=== PATIENT | female | born 1985 | race African-American/Black ===

== ENCOUNTER 2018-12-08 22:13 | Emergency (ER) | payer OTHER ==
[~2018-12-08] VITALS: Ht 157.5 cm; Wt 56.2 kg
--- NOTE | 2018-12-08 22:51 | PHYS DOC ---
Adult General Chief Complaint Chief Complaint: abdominal pain HPI HPI 33-year-old female presents with sudden onset of epigastric abdominal pain. The patient was driving her car around 4:30 and she began to have this pain. It is a cramping sensation of moderate intensity. The last time the patient ate was 9:00 this morning. She has had a couple episodes of diarrhea today. She has a bit nauseous, but no vomiting. He denies fever or chills. She had pain like this once in the past, but it went away spontaneously. Patient is not a daily alcohol drinker. She has no history of pancreatitis. Review of Systems Review of Systems Constitutional: Denies fever or chills [] Eyes: Denies change in visual acuity, redness, or eye pain [] HENT: Denies nasal congestion or sore throat [] Respiratory: Denies cough or shortness of breath [] Cardiovascular: No additional information not addressed in HPI [] GI: abdominal pain, nausea, diarrhea. Denies vomiting, bloody stools.[] : Denies dysuria or hematuria [] Musculoskeletal: Denies back pain or joint pain [] Integument: Denies rash or skin lesions [] Neurologic: Denies headache, focal weakness or sensory changes [] Endocrine: Denies polyuria or polydipsia [] All other systems were reviewed and found to be within normal limits, except as documented in this note. Current Medications Current Medications Current Medications Medications (Trade) Dose Ordered Sig/[facility] Start Time Stop Time Status Last Admin Dose Admin Sodium Chloride 1,000 ml @ 1,000 mls/hr 1X ONCE 12/08/18 22:45 12/08/18 23:44 UNV Physical Exam Physical Exam Constitutional: Well developed, well nourished, no acute distress, non-toxic appearance. [] HENT: Normocephalic, atraumatic, bilateral external ears normal, oropharynx moist, no oral exudates, nose normal. [] Eyes: PERRLA, EOMI, conjunctiva normal, no discharge. [] Neck: Normal range of motion, no tenderness, supple, no stridor. [] Cardiovascular:Heart rate regular rhythm, no murmur [] Lungs & Thorax: Bilateral breath sounds clear to auscultation [] Abdomen: Bowel sounds normal, soft, moderate epigastric tenderness, no masses, no pulsatile masses. [] Skin: Warm, dry, no erythema, no rash. [] Back: No tenderness, no CVA tenderness. [] Extremities: No tenderness, no cyanosis, no clubbing, ROM intact, no edema. [] Neurologic: Alert and oriented X 3, normal motor function, normal sensory fun ction, no focal deficits noted. [] Psychologic: Affect normal, judgement normal, mood normal. [] EKG EKG [] Radiology/Procedures Radiology/Procedures [] Impressions: Supine abdomen. HISTORY: Epigastric pain Supine view was taken of the abdomen. Bowel pattern is normal. There are no abnormal calcifications. Osseous structures are unremarkable. IMPRESSION: 1. Negative abdomen. Electronically signed by: Carl Sandoval MD (12/09/2018 12:26 AM) [facility] DICTATED AND SIGNED BY: CARL SANDOVAL MD DATE: 12/09/1825 CC: KALEB STEIN DO; PCP,NO ~ Course & Med Decision Making Course & Med Decision Making Pertinent Labs and Imaging studies reviewed. (See chart for details) The patient's labs are unremarkable. Her urinalysis is negative for infection. She is not . The patient was given Toradol for her discomfort. Believe it's possible this is related to her gallbladder. Liver enzymes are normal at this time so it is not acute cholecystitis. I have advised that she follow-up with her PCP to consider ultrasound and/or HIDA scan. She is stable for discharge at this time. [] Dragon Disclaimer Dragon Disclaimer This electronic medical record was generated, in whole or in part, using a voice recognition dictation system. Departure Departure: Impression: Primary Impression: Epigastric abdominal pain Additional Impression: Constipation Disposition: 01 HOME, SELF-CARE Condition: STABLE Referrals: PCP,NO (PCP) Patient Instructions: Abdominal Pain, Women, Constipation, Adult, [id number] Problem Qualifiers KALEB STEIN DO Dec 08, 2018 22:51
[2018-12-08 23:10] LABS: BASO % 0 % (0-3); EOS # 0.1 x10^3/uL (0.0-0.7); EOS % 1 % (0-3); HEMATOCRIT 41.6 % (36.0-47.0); HEMOGLOBIN 13.6 g/dL (12.0-15.5); LYMPH # 0.8 x10^3/uL (1.0-4.8); LYMPH % 10 % (24-48); MEAN CORPUSCULAR HEMOGLOBIN 27 pg (25-35); MEAN CORPUSCULAR HGB CONC 33 g/dL (31-37); MEAN CORPUSCULAR VOLUME 82 fL (79-100); MONO # 0.4 x10^3/uL (0.0-1.1); MONO % 6 % (0-9); NEUT # 6.1 x10^3uL (1.8-7.7); NEUT % 83 % (31-73); PLATELET COUNT 190 x10^3/uL (140-400); RED BLOOD COUNT 5.08 x10^6/uL (3.50-5.40); RED CELL DISTRIBUTION WIDTH 12.7 % (11.5-14.5); WHITE BLOOD COUNT 7.4 x10^3/uL (4.0-11.0)
[2018-12-08] MEDS ORDERED: IV NORMAL SALINE 1,000ML 1,000 ML IV ONE (23:15)
[2018-12-08] MEDS ORDERED: KETOROLAC 30 MG/ML VIAL. IV ONE (23:15)
[2018-12-08 23:27] LABS: ALBUMIN 4.1 g/dL (3.4-5.0); ALBUMIN/GLOBULIN RATIO 0.9 (1.0-1.7); CALCIUM 9.4 mg/dL (8.5-10.1); CREATININE 0.7 mg/dL (0.6-1.0); GFR 117.3; POTASSIUM 3.5 mmol/L (3.5-5.1); TOTAL BILIRUBIN 0.3 mg/dL (0.2-1.0); TOTAL PROTEIN 8.5 g/dL (6.4-8.2)
[2018-12-08 23:42] LABS: BILIRUBIN,URINE NEG (NEG); CLARITY,URINE CLEAR; COLOR,URINE YELLOW; GLUCOSE,URINE NEG (NEG); NITRITE,URINE NEG (NEG); RBC,URINE OCC /HPF (0-2); UROBILINOGEN,URINE 0.2 mg/dL (0.2 mg/dL)
[2018-12-08 23:43] LABS: BACTERIA,URINE FEW /HPF (0-FEW); SQUAMOUS EPITHELIAL CELL,UR FEW /LPF
--- NOTE | 2018-12-09 00:29 | RAD ---
Supine abdomen. HISTORY: Epigastric pain Supine view was taken of the abdomen. Bowel pattern is normal. There are no abnormal calcifications. Osseous structures are unremarkable. IMPRESSION: 1. Negative abdomen. Electronically signed by: Bishop Mtz MD (12/09/2018 12:26 AM) [facility]
[2018-12-09 00:44] VITALS: BP 98/55
== END 2018-12-09 00:50 | disposition home or self-care (01) ==
LOC: ER 22:13
DX: K59.00 Constipation, unspecified (principal); R19.7 Diarrhea, unspecified
CPT/HCPCS: 36415; 74018; 80053; 81001; 81025; 83690; 85025; 96361; 96374; 99285; J1885; J7030

== ENCOUNTER 2018-12-30 20:39 | Emergency (ER) | payer OTHER ==
[~2018-12-30] VITALS: Ht 157.5 cm; Wt 52.6 kg
[2018-12-30] MEDS ORDERED: IV RINGERS SOLUTION,LACTATED 1,000 ML IV SCH (20:44)
--- NOTE | 2018-12-30 20:44 | ED.ADGEN ---
Past History Past Medical History: No Pertinent History Past Medical History H.Pylori Past Surgical History: No Surgical History Alcohol Use: None Drug Use: None Adult General Chief Complaint Chief Complaint ".. I got this vaginal discharge.. I ve had it before.. and I also on treatment for H.pylori.. 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 Patient has had 1 lifetime sex partners. No documented history of previous STDs. Recent travel from [place] to [place]. Patient visiting from [place]. No history immunosuppression. Currently under treatment for H. pylori. Patient up-to-date with vaccinations. Patient currently breast-feeding. No new soaps, douches, or changes in personal hygiene products. Review of Systems Review of Systems Constitutional: Denies fever or chills [] Eyes: Denies change in visual acuity, redness, or eye pain [] HENT: Denies nasal congestion or sore throat [] Respiratory: Denies cough or shortness of breath [] Cardiovascular: No additional information not addressed in HPI [] GI: Denies abdominal pain, nausea, vomiting, bloody stools or diarrhea [] : Denies dysuria or hematuria []complains of inflamed vaginal labia and vaginal discharge Musculoskeletal: Denies back pain or joint pain [] Integument: Denies rash or skin lesions [] Neurologic: Denies headache, focal weakness or sensory changes [] Endocrine: Denies polyuria or polydipsia [] All other systems were reviewed and found to be within normal limits, except as documented in this note. Family History Family History Noncontributory Current Medications Current Medications Current Medications Medications (Trade) Dose Ordered Sig/[place] Start Time Stop Time Status Last Admin Dose Admin Acyclovir (Zovirax) 400 mg 1X ONCE 12/30/18 22:15 12/30/18 22:16 DC 12/30/18 22:59 400 MG Azithromycin (Zithromax) 1,000 mg 1X ONCE 12/30/18 22:15 12/30/18 22:16 DC 12/30/18 22:59 1,000 MG Ceftriaxone Sodium 1 gm/ Sodium Chloride 50 ml @ 100 mls/hr 1X ONCE 12/30/18 22:00 12/30/18 22:29 DC 12/30/18 22:00 100 MLS/HR Ceftriaxone Sodium (Rocephin) 1 gm STK-MED ONCE 12/30/18 22:27 12/30/18 22:28 DC Famotidine (Pepcid Vial) 20 mg 1X ONCE 12/30/18 21:15 12/30/18 21:16 DC 12/30/18 22:59 20 MG Lactated Ringer's 1,000 ml @ 1,000 mls/hr Q1H 12/30/18 20:44 12/30/18 21:43 DC 12/30/18 22:12 1,000 MLS/HR Metronidazole (Flagyl) 2,000 mg 1X ONCE 12/30/18 22:15 12/30/18 22:16 DC 12/30/18 22:59 2,000 MG Ondansetron HCl (Zofran) 8 mg 1X ONCE 12/30/18 21:15 12/30/18 21:16 DC 12/30/18 22:58 8 MG Sodium Chloride 50 ml @ As Directed STK-MED ONCE 12/30/18 22:27 12/30/18 22:28 DC Allergies Allergies Allergies Coded Allergies Type Severity Reaction Last Updated Verified No Known Drug Allergies 12/08/18 No Physical Exam Physical Exam Constitutional: Well developed, well nourished, moderate acute distress, non- toxic appearance. [] HENT: Normocephalic, atraumatic, bilateral external ears normal, oropharynx moist, no oral exudates, nose normal. [] Eyes: PERRLA, EOMI, conjunctiva normal, no discharge. [] Neck: Normal range of motion, no tenderness, supple, no stridor. [] Cardiovascular:Heart rate regular rhythm, no murmur [] Lungs & Thorax: Bilateral breath sounds clear to auscultation [] Abdomen: Bowel sounds normal, soft, no tenderness, no masses, no pulsatile masses. []Vaginal labia are very red and swollen with some breakdown has had blisters. Patient has copious vaginal discharge and cervical motion tenderness Skin: Warm, dry, no erythema, no rash. [] Back: No tenderness, no CVA tenderness. [] Extremities: No tenderness, no cyanosis, no clubbing, ROM intact, no edema. [] Neurologic: Alert and oriented X 3, normal motor function, normal sensory function, no focal deficits noted. [] Psychologic: Affect anxious, judgement normal, mood normal. [] Current Patient Data Lab Results Laboratory Tests Test 12/30/18 21:25 12/30/18 21:54 12/30/18 21:56 Urine Collection Type Unknown Urine Color Yellow Urine Clarity Hazy Urine pH 7.0 Urine Specific [place] 1.020 Urine Protein 30 mg/dl (NEG-TRACE) Urine Glucose (UA) Neg mg/dL (NEG) Urine Ketones (Stick) Neg mg/dL (NEG) Urine Blood Trace (NEG) Urine Nitrite Neg (NEG) Urine Bilirubin Neg (NEG) Urine Urobilinogen Dipstick 0.2 mg/dL (0.2 mg/dL) Urine Leukocyte Esterase Mod (NEG) Urine RBC Occ /HPF (0-2) Urine WBC 20-40 /HPF (0-4) Urine Squamous Epithelial Cells Occ /LPF Urine Bacteria Few /HPF (0-FEW) Urine Test Negative (NEG) Urine Opiates Screen Neg (NEG) Urine Methadone Screen Neg (NEG) Urine Barbiturates Neg (NEG) Urine Phencyclidine Screen Neg (NEG) Urine Amphetamine/Methamphetamine Neg (NEG) Urine Benzodiazepines Screen Neg (NEG) Urine Cocaine Screen Neg (NEG) Urine Cannabinoids Screen Neg (NEG) Urine Ethyl Alcohol Neg (NEG) POC Urine HCG, Qualitative hcg negative (Negative) White Blood Count 5.8 x10^3/uL (4.0-11.0) Red Blood Count 4.82 x10^6/uL (3.50-5.40) Hemoglobin 12.8 g/dL (12.0-15.5) Hematocrit 39.8 % (36.0-47.0) Mean Corpuscular Volume 83 fL (79-100) Mean Corpuscular Hemoglobin 27 pg (25-35) Mean Corpuscular Hemoglobin Concent 32 g/dL (31-37) Red Cell Distribution Width 13.2 % (11.5-14.5) Platelet Count 206 x10^3/uL (140-400) Neutrophils (%) (Auto) 49 % (31-73) Lymphocytes (%) (Auto) 40 % (24-48) Monocytes (%) (Auto) 6 % (0-9) Eosinophils (%) (Auto) 4 % (0-3) H Basophils (%) (Auto) 0 % (0-3) Neutrophils # (Auto) 2.9 x10^3uL (1.8-7.7) Lymphocytes # (Auto) 2.3 x10^3/uL (1.0-4.8) Monocytes # (Auto) 0.4 x10^3/uL (0.0-1.1) Eosinophils # (Auto) 0.2 x10^3/uL (0.0-0.7) Basophils # (Auto) 0.0 x10^3/uL (0.0-0.2) Sodium Level 140 mmol/L (136-145) Potassium Level 3.2 mmol/L (3.5-5.1) L Chloride Level 106 mmol/L (98-107) Carbon Dioxide Level 28 mmol/L (21-32) Anion Gap 6 (6-14) Blood Urea Nitrogen 9 mg/dL (7-20) Creatinine 0.8 mg/dL (0.6-1.0) Estimated GFR (Cockcroft-Gault) 100.6 Glucose Level 80 mg/dL (70-99) Calcium Level 9.1 mg/dL (8.5-10.1) Total Bilirubin 0.1 mg/dL (0.2-1.0) L Direct Bilirubin 0.1 mg/dL (0.0-0.2) Aspartate Amino Transferase (AST) 19 U/L (15-37) Alanine Aminotransferase (ALT) 20 U/L (14-59) Alkaline Phosphatase 81 U/L (46-116) Total Protein 8.1 g/dL (6.4-8.2) Albumin 3.9 g/dL (3.4-5.0) Microbiology 12/30/18 Wet Prep - Final, Complete Microbiology 12/30/18 Wet Prep - Final, Complete EKG EKG [] Radiology/Procedures Radiology/Procedures [] Course & Med Decision Making Course & Med Decision Making Pertinent Labs and Imaging studies reviewed. (See chart for details). Safe sex. Follow-up pending cultures. Partner must also be treated prevent reinfection. Re-exam if no improvement. Use Metrazol suppository nightly for 7 days. Take Keflex 500 mg 3 times a day. Follow-up primary care. Take Valcyclovir 500mg twice a day x 10 day s. Diflucan 100 x 3 days after completes antibiotics. Must follow up. [] Final Impression Final Impression 1. Cervicitis 2. Hx. H. Pylori[] Dragon Disclaimer Dragon Disclaimer This electronic medical record was generated, in whole or in part, using a voice recognition dictation system. Discharge Summary Visit Information Final Diagnosis Problems Medical Problems: (1) Cervicitis Status: Acute Brief Hospital Course Allergies Allergies Coded Allergies Type Severity Reaction Last Updated Verified No Known Drug Allergies 12/08/18 No Lab Results Laboratory Tests Test 12/30/18 21:25 12/30/18 21:54 12/30/18 21:56 Urine Collection Type Unknown Urine Color Yellow Urine Clarity Hazy Urine pH 7.0 Urine Specific [place] 1.020 Urine Protein 30 mg/dl (NEG-TRACE) Urine Glucose (UA) Neg mg/dL (NEG) Urine Ketones (Stick) Neg mg/dL (NEG) Urine Blood Trace (NEG) Urine Nitrite Neg (NEG) Urine Bilirubin Neg (NEG) Urine Urobilinogen Dipstick 0.2 mg/dL (0.2 mg/dL) Urine Leukocyte Esterase Mod (NEG) Urine RBC Occ /HPF (0-2) Urine WBC 20-40 /HPF (0-4) Urine Squamous Epithelial Cells Occ /LPF Urine Bacteria Few /HPF (0-FEW) Urine Test Negative (NEG) Urine Opiates Screen Neg (NEG) Urine Methadone Screen Neg (NEG) Urine Barbiturates Neg (NEG) Urine Phencyclidine Screen Neg (NEG) Urine Amphetamine/Methamphetamine Neg (NEG) Urine Benzodiazepines Screen Neg (NEG) Urine Cocaine Screen Neg (NEG) Urine Cannabinoids Screen Neg (NEG) Urine Ethyl Alcohol Neg (NEG) Bedside Urine HCG, Qualitative hcg negative (Negative) White Blood Count 5.8 x10^3/uL (4.0-11.0) Red Blood Count 4.82 x10^6/uL (3.50-5.40) Hemoglobin 12.8 g/dL (12.0-15.5) Hematocrit 39.8 % (36.0-47.0) Mean Corpuscular Volume 83 fL (79-100) Mean Corpuscular Hemoglobin 27 pg (25-35) Mean Corpuscular Hemoglobin Concent 32 g/dL (31-37) Red Cell Distribution Width 13.2 % (11.5-14.5) Platelet Count 206 x10^3/uL (140-400) Neutrophils (%) (Auto) 49 % (31-73) Lymphocytes (%) (Auto) 40 % (24-48) Monocytes (%) (Auto) 6 % (0-9) Eosinophils (%) (Auto) 4 % (0-3) Basophils (%) (Auto) 0 % (0-3) Neutrophils # (Auto) 2.9 x10^3uL (1.8-7.7) Lymphocytes # (Auto) 2.3 x10^3/uL (1.0-4.8) Monocytes # (Auto) 0.4 x10^3/uL (0.0-1.1) Eosinophils # (Auto) 0.2 x10^3/uL (0.0-0.7) Basophils # (Auto) 0.0 x10^3/uL (0.0-0.2) Sodium Level 140 mmol/L (136-145) Potassium Level 3.2 mmol/L (3.5-5.1) Chloride Level 106 mmol/L (98-107) Carbon Dioxide Level 28 mmol/L (21-32) Anion Gap 6 (6-14) Blood Urea Nitrogen 9 mg/dL (7-20) Creatinine 0.8 mg/dL (0.6-1.0) Estimated GFR (Cockcroft-Gault) 100.6 Glucose Level 80 mg/dL (70-99) Calcium Level 9.1 mg/dL (8.5-10.1) Total Bilirubin 0.1 mg/dL (0.2-1.0) Direct Bilirubin 0.1 mg/dL (0.0-0.2) Aspartate Amino Transf (AST/SGOT) 19 U/L (15-37) Alanine Aminotransferase (ALT/SGPT) 20 U/L (14-59) Alkaline Phosphatase 81 U/L (46-116) Total Protein 8.1 g/dL (6.4-8.2) Albumin 3.9 g/dL (3.4-5.0) Brief Hospital Course Ms. Palmer is a 33 old [sex] who presented with [ ] Discharge Information Dischare Medications Current Medications Lactated Ringer's 1,000 ml @ 1,000 mls/hr Q1H IV Last administered on 12/30/18at 22:12; Admin Dose 1,000 MLS/HR; Start 12/30/18 at 20:44; Stop 12/30/18 at 21:43; Status DC Ondansetron HCl (Zofran) 8 mg 1X ONCE IV Last administered on 12/30/18at 22:58; Admin Dose 8 MG; Start 12/30/18 at 21:15; Stop 12/30/18 at 21:16; Status DC Famotidine (Pepcid Vial) 20 mg 1X ONCE IVP Last administered on 12/30/18at 22:59; Admin Dose 20 MG; Start 12/30/18 at 21:15; Stop 12/30/18 at 21:16; Stat us DC Ceftriaxone Sodium 1 gm/ Sodium Chloride 50 ml @ 100 mls/hr 1X ONCE IV Last administered on 12/30/18at 22:00; Admin Dose 100 MLS/HR; Start 12/30/18 at 22:00; Stop 12/30/18 at 22:29; Status DC Metronidazole (Flagyl) 2,000 mg 1X ONCE PO Last administered on 12/30/18at 22:59; Admin Dose 2,000 MG; Start 12/30/18 at 22:15; Stop 12/30/18 at 22:16; Status DC Azithromycin (Zithromax) 1,000 mg 1X ONCE PO Last administered on 12/30/18at 22:59; Admin Dose 1,000 MG; Start 12/30/18 at 22:15; Stop 12/30/18 at 22:16; Status DC Acyclovir (Zovirax) 400 mg 1X ONCE PO Last administered on 12/30/18at 22:59; Admin Dose 400 MG; Start 12/30/18 at 22:15; Stop 12/30/18 at 22:16; Status DC Sodium Chloride 50 ml @ As Directed STK-MED ONCE .ROUTE ; Start 12/30/18 at 22:2 7; Stop 12/30/18 at 22:28; Status DC Ceftriaxone Sodium (Rocephin) 1 gm STK-MED ONCE .ROUTE ; Start 12/30/18 at 22:27; Stop 12/30/18 at 22:28; Status DC Active Scripts Active Keflex (Cephalexin) 500 Mg Capsule 500 Mg PO TID 7 Days Diflucan (Fluconazole) 100 Mg Tablet 100 Mg PO DAILY 3 Days Metrogel-Vaginal (Metronidazole) 70 Gm Gel.w.appl 1 Appful VG QHS 7 Days Valtrex (Valacyclovir Hcl) 1,000 Mg Tablet 1,000 Mg PO BID 10 Days Discharge Summary Visit Information Final Diagnosis Problems Medical Problems: (1) Cervicitis Status: Acute Brief Hospital Course Allergies Allergies Coded Allergies Type Severity Reaction Last Updated Verified No Known Drug Allergies 12/08/18 No Lab Results Laboratory Tests Test 12/30/18 21:25 12/30/18 21:54 12/30/18 21:56 Urine Collection Type Unknown Urine Color Yellow Urine Clarity Hazy Urine pH 7.0 Urine Specific [place] 1.020 Urine Protein 30 mg/dl (NEG-TRACE) Urine Glucose (UA) Neg mg/dL (NEG) Urine Ketones (Stick) Neg mg/dL (NEG) Urine Blood Trace (NEG) Urine Nitrite Neg (NEG) Urine Bilirubin Neg (NEG) Urine Urobilinogen Dipstick 0.2 mg/dL (0.2 mg/dL) Urine Leukocyte Esterase Mod (NEG) Urine RBC Occ /HPF (0-2) Urine WBC 20-40 /HPF (0-4) Urine Squamous Epithelial Cells Occ /LPF Urine Bacteria Few /HPF (0-FEW) Urine Test Negative (NEG) Urine Opiates Screen Neg (NEG) Urine Methadone Screen Neg (NEG) Urine Barbiturates Neg (NEG) Urine Phencyclidine Screen Neg (NEG) Urine Amphetamine/Methamphetamine Neg (NEG) Urine Benzodiazepines Screen Neg (NEG) Urine Cocaine Screen Neg (NEG) Urine Cannabinoids Screen Neg (NEG) Urine Ethyl Alcohol Neg (NEG) Bedside Urine HCG, Qualitative hcg negative (Negative) White Blood Count 5.8 x10^3/uL (4.0-11.0) Red Blood Count 4.82 x10^6/uL (3.50-5.40) Hemoglobin 12.8 g/dL (12.0-15.5) Hematocrit 39.8 % (36.0-47.0) Mean Corpuscular Volume 83 fL (79-100) Mean Corpuscular Hemoglobin 27 pg (25-35) Mean Corpuscular Hemoglobin Concent 32 g/dL (31-37) Red Cell Distribution Width 13.2 % (11.5-14.5) Platelet Count 206 x10^3/uL (140-400) Neutrophils (%) (Auto) 49 % (31-73) Lymphocytes (%) (Auto) 40 % (24-48) Monocytes (%) (Auto) 6 % (0-9) Eosinophils (%) (Auto) 4 % (0-3) Basophils (%) (Auto) 0 % (0-3) Neutrophils # (Auto) 2.9 x10^3uL (1.8-7.7) Lymphocytes # (Auto) 2.3 x10^3/uL (1.0-4.8) Monocytes # (Auto) 0.4 x10^3/uL (0.0-1.1) Eosinophils # (Auto) 0.2 x10^3/uL (0.0-0.7) Basophils # (Auto) 0.0 x10^3/uL (0.0-0.2) Sodium Level 140 mmol/L (136-145) Potassium Level 3.2 mmol/L (3.5-5.1) Chloride Level 106 mmol/L (98-107) Carbon Dioxide Level 28 mmol/L (21-32) Anion Gap 6 (6-14) Blood Urea Nitrogen 9 mg/dL (7-20) Creatinine 0.8 mg/dL (0.6-1.0) Estimated GFR (Cockcroft-Gault) 100.6 Glucose Level 80 mg/dL (70-99) Calcium Level 9.1 mg/dL (8.5-10.1) Total Bilirubin 0.1 mg/dL (0.2-1.0) Direct Bilirubin 0.1 mg/dL (0.0-0.2) Aspartate Amino Transf (AST/SGOT) 19 U/L (15-37) Alanine Aminotransferase (ALT/SGPT) 20 U/L (14-59) Alkaline Phosphatase 81 U/L (46-116) Total Protein 8.1 g/dL (6.4-8.2) Albumin 3.9 g/dL (3.4-5.0) Brief Hospital Course Ms. Palmer is a 33 old female who presented with cervicitis. Discharge Information Condition at Discharge: Stable Disposition/Orders: D/C to Home Dischare Medications Current Medications Lactated Ringer's 1,000 ml @ 1,000 mls/hr Q1H IV Last administered on 12/30/18at 22:12; Admin Dose 1,000 MLS/HR; Start 12/30/18 at 20:44; Stop 12/30/18 at 21:43; Status DC Ondansetron HCl (Zofran) 8 mg 1X ONCE IV Last administered on 12/30/18at 22:58; Admin Dose 8 MG; Start 12/30/18 at 21:15; Stop 12/30/18 at 21:16; Status DC Famotidine (Pepcid Vial) 20 mg 1X ONCE IVP Last administered on 12/30/18at 22:59; Admin Dose 20 MG; Start 12/30/18 at 21:15; Stop 12/30/18 at 21:16; Status DC Ceftriaxone Sodium 1 gm/ Sodium Chloride 50 ml @ 100 mls/hr 1X ONCE IV Last administered on 12/30/18at 22:00; Admin Dose 100 MLS/HR; Start 12/30/18 at 22:00; Stop 12/30/18 at 22:29; Status DC Metronidazole (Flagyl) 2,000 mg 1X ONCE PO Last administered on 12/30/18at 22:59; Admin Dose 2,000 MG; Start 12/30/18 at 22:15; Stop 12/30/18 at 22:16; Status DC Azithromycin (Zithromax) 1,000 mg 1X ONCE PO Last administered on 12/30/18at 22:59; Admin Dose 1,000 MG; Start 12/30/18 at 22:15; Stop 12/30/18 at 22:16; Status DC Acyclovir (Zovirax) 400 mg 1X ONCE PO Last administered on 12/30/18at 22:59; Admin Dose 400 MG; Start 12/30/18 at 22:15; Stop 12/30/18 at 22:16; Status DC Sodium Chloride 50 ml @ As Directed STK-MED ONCE .ROUTE ; Start 12/30/18 at 22:27; Stop 12/30/18 at 22:28; Status DC Ceftriaxone Sodium (Rocephin) 1 gm STK-MED ONCE .ROUTE ; Start 12/30/18 at 22:27; Stop 12/30/18 at 22:28; Status DC Active Scripts Active Keflex (Cephalexin) 500 Mg Capsule 500 Mg PO TID 7 Days Diflucan (Fluconazole) 100 Mg Tablet 100 Mg PO DAILY 3 Days Metrogel-Vaginal (Metronidazole) 70 Gm Gel.w.appl 1 Appful VG QHS 7 Days Valtrex (Valacyclovir Hcl) 1,000 Mg Tablet 1,000 Mg PO BID 10 Days Dragon Disclaimer This chart was dictated in whole or in part using Voice Recognition software in a busy, high-work load, and often noisy Emergency Department environment. It may contain unintended and wholly unrecognized errors or omissions. Dragon Disclaimer This chart was dictated in whole or in part using Voice Recognition software in a busy, high-work load, and often noisy Emergency Department environment. It may contain unintended and wholly unrecognized errors or omissions. ANKIT HUDSON MD Dec 30, 2018 20:44
[2018-12-30] MEDS ORDERED: FAMOTIDINE 20 MG/2 ML VIAL IVP ONE (21:15)
[2018-12-30] MEDS ORDERED: ONDANSETRON PF 4 MG/2 ML VIAL. IV ONE (21:15)
[2018-12-30] MEDS ORDERED: DOXY100C14 PO (22:05)
[2018-12-30] MEDS ORDERED: METR70GE14 VG (22:05)
[2018-12-30] MEDS ORDERED: FLUC100T7 PO (22:05)
[2018-12-30] MEDS ORDERED: VALA10005 PO (22:05)
[2018-12-30] MEDS ORDERED: AZITHROMYCIN 250 MG TABLET. PO ONE (22:15)
[2018-12-30] MEDS ORDERED: metroNIDAZOLE 500 MG TABLET PO ONE (22:15)
[2018-12-30] MEDS ORDERED: ACYCLOVIR 200 MG CAPSULE PO ONE (22:15)
[2018-12-30 22:16] LABS: BARBITURATES NEG (NEG); BENZODIAZEPINES NEG (NEG); CANNABINOIDS NEG (NEG); COCAINE NEG (NEG); METHADONE NEG (NEG); OPIATES NEG (NEG); PHENCYCLIDINE NEG (NEG)
[2018-12-30 22:24] LABS: AMPHETAMINE/METHAMPHETAMINE NEG (NEG)
[2018-12-30] MEDS ORDERED: IV NORMAL SALINE 50ML 50 ML ONE (22:27)
[2018-12-30] MEDS ORDERED: cefTRIAXone SODIUM 1 GM VIAL ONE (22:27)
[2018-12-30 22:32] LABS: BASO % 0 % (0-3); EOS # 0.2 x10^3/uL (0.0-0.7); EOS % 4 % (0-3); HEMATOCRIT 39.8 % (36.0-47.0); HEMOGLOBIN 12.8 g/dL (12.0-15.5); LYMPH # 2.3 x10^3/uL (1.0-4.8); LYMPH % 40 % (24-48); MEAN CORPUSCULAR HEMOGLOBIN 27 pg (25-35); MEAN CORPUSCULAR HGB CONC 32 g/dL (31-37); MEAN CORPUSCULAR VOLUME 83 fL (79-100); MONO # 0.4 x10^3/uL (0.0-1.1); MONO % 6 % (0-9); NEUT # 2.9 x10^3uL (1.8-7.7); NEUT % 49 % (31-73); PLATELET COUNT 206 x10^3/uL (140-400); RED BLOOD COUNT 4.82 x10^6/uL (3.50-5.40); RED CELL DISTRIBUTION WIDTH 13.2 % (11.5-14.5); WHITE BLOOD COUNT 5.8 x10^3/uL (4.0-11.0)
[2018-12-30 22:32] LABS: U PREG PATIENT NEGATIVE (NEG)
[2018-12-30 22:40] LABS: ALBUMIN 3.9 g/dL (3.4-5.0); CALCIUM 9.1 mg/dL (8.5-10.1); CREATININE 0.8 mg/dL (0.6-1.0); DIRECT BILIRUBIN 0.1 mg/dL (0.0-0.2); GFR 100.6; POTASSIUM 3.2 mmol/L (3.5-5.1); TOTAL BILIRUBIN 0.1 mg/dL (0.2-1.0); TOTAL PROTEIN 8.1 g/dL (6.4-8.2)
[2018-12-30 22:46] LABS: BACTERIA,URINE FEW /HPF (0-FEW); BILIRUBIN,URINE NEG (NEG); CLARITY,URINE HAZY; COLOR,URINE YELLOW; GLUCOSE,URINE NEG (NEG); NITRITE,URINE NEG (NEG); RBC,URINE OCC /HPF (0-2); SQUAMOUS EPITHELIAL CELL,UR OCC /LPF; UROBILINOGEN,URINE 0.2 mg/dL (0.2 mg/dL); WBC,URINE 20-40 /HPF (0-4)
[2018-12-30] MEDS ORDERED: CEPH-264 PO (22:50)
[2018-12-30 23:35] VITALS: BP 114/59
[2019-01-02 17:07] LABS: HERPES SIMPLEX TYPE 1 Negative (Negative); HERPES SIMPLEX TYPE 2 Negative (Negative)
[2019-01-03 18:08] LABS: CHLAMYDIA PROBE Negative (Negative)
== END 2018-12-30 23:30 | disposition home or self-care (01) ==
LOC: ER 20:39
DX: N72 Inflammatory disease of cervix uteri (principal)
CPT/HCPCS: 36415; 80048; 80076; 80307; 81001; 81025; 85025; 86592; 86703; 86705; 86709; 86803; 87086; 87340; 87491; 87529; 87591; 96374; 96375; 99284; J0456; J0696; J2405; J3490; J7120; Q0111

== ENCOUNTER → 2019-01-03 | Emergency (ER) | payer OTHER ==
[~2019-01-03] VITALS: Ht 157.5 cm; Wt 54.0 kg
[~2019-01-03] MED LIST: CEPH-264 PO; DOXY100C14 PO; FLUC100T7 PO; IOHEXOL 240 MG/ML 50ML VIAL. PO ONE; IOHEXOL 300 MG/ML 75 ML VIAL. IV ONE; IV NORMAL SALINE 1,000ML 1,000 ML IV SCH; METR70GE14 VG; MORPHINE SULFATE 4 MG/ML DISP.SYRIN. IV/SQ PRN; ONDANSETRON PF 4 MG/2 ML VIAL. IV ONE; VALA10005 PO
[2019-01-03 15:52] VITALS: BP 134/76
--- NOTE | 2019-01-03 16:03 | PHYS DOC ---
Past History Past Medical History: No Pertinent History Past Surgical History: No Surgical History Alcohol Use: None Drug Use: None Adult General Chief Complaint Chief Complaint: ABDOMINAL PAIN HPI HPI Patient is a 33-year-old female who presents for evaluation of periumbilical abdominal pain as well as nausea, vomiting, and diarrhea. She was seen here 4 days ago was complaining of pelvic discomfort and vaginal discharge. She tells me that she was not really having very much pain at that time. She is currently on antibiotics from that emergency department visit. Over the last day she has developed a severe periumbilical pain. She denies any abdominal past surgical history. She is from [facility]. She denies any significant past medical history. She denies hematemesis, urinary complaints, current pelvic pain, rectal bleeding or bloody bowel movements, chest pain or shortness of breath, dizziness or syncope. Review of Systems Review of Systems Constitutional: Denies fever or chills [] Eyes: Denies change in visual acuity, redness, or eye pain [] HENT: Denies nasal congestion or sore throat [] Respiratory: Denies cough or shortness of breath [] Cardiovascular: No additional information not addressed in HPI [] GI: Denies bloody stools. Severe abdominal pain, nausea vomiting and diarrhea : Denies dysuria or hematuria [] Musculoskeletal: Denies back pain or joint pain [] Integument: Denies rash or skin lesions [] Neurologic: Denies headache, focal weakness or sensory changes [] Endocrine: Denies polyuria or polydipsia [] All other systems were reviewed and found to be within normal limits, except as documented in this note. Allergies Allergies Allergies Coded Allergies Type Severity Reaction Last Updated Verified No Known Drug Allergies 12/08/18 No Physical Exam Physical Exam Constitutional: Well developed, well nourished, no acute distress, non-toxic appearance. [] appears anxious and uncomfortable HENT: Normocephalic, atraumatic, bilateral external ears normal, oropharynx moist, no oral exudates, nose normal. [] Eyes: PERRLA, EOMI, conjunctiva normal, no discharge. [] Neck: Normal range of motion, no tenderness, supple, no stridor. [] Cardiovascular:Heart rate regular rhythm, no murmur [] Lungs & Thorax: Bilateral breath sounds clear to auscultation [] Abdomen: Bowel sounds normal, soft, no masses, no pulsatile masses. [] Moderate periumbilical tenderness is present, mild voluntary guarding, soft, no rigidity, no distention, no surgical scars Skin: Warm, dry, no erythema, no rash. [] Back: No tenderness, no CVA tenderness. [] Extremities: No tenderness, no cyanosis, no clubbing, ROM intact, no edema. [] Neurologic: Alert and oriented X 3, normal motor function, normal sensory function, no focal deficits noted. [] Psychologic: Affect normal, judgement normal, mood normal. [] EKG EKG [] Radiology/Procedures Radiology/Procedures [address] [address] IMAGING REPORT Signed PATIENT: MAURICE GRIMES ACCOUNT: [id number] : 1985 LOCATION: ER AGE: 33 SEX: F EXAM STATUS: REG ER ORD. PHYSICIAN: TAJ BEAULIEU DO REASON: severe periumbilical pain, recent cervicitis, nausea/vomiting PROCEDURE: CT ABD PELV W/ IV CONTRST ONLY Examination: CT of the abdomen pelvis with IV contrast HISTORY: History of periumbilical pain, nausea, vomiting COMPARISON: None available TECHNIQUE: Axial CT images of the abdomen pelvis were performed with IV contrast. Coronal and sagittal reformats are performed. Exposure: One or more of the following individualized dose reduction techniques were utilized for this examination: 1. Automated exposure control 2. Adjustment of the mA and/or kV according to patient size 3. Use of iterative reconstruction technique FINDINGS: The bibasilar lungs are clear. No evidence of free air identified in the abdomen. Examination is very limited due to lack of intra-abdominal fat which makes evaluation of the bowel is limited. The visualized liver, spleen, adrenals grossly appears unremarkable. The gallbladder is mildly distended. The stomach is mildly distended. The visualized pancreas grossly appears unremarkable The small bowel is nondilated. On series 2 image #57 there is a small tubular structure which appears fluid-filled measuring 6 mm in transverse dimension which could be the dilated appendix. Underlying appendicitis is a possibility. Multiple bowel loops in this region and lack of oral contrast limits evaluation. Urinary bladder is mildly distended.. Feces and gas noted in the colon throughout The bilateral kidneys enhance symmetrically The caliber of the aorta grossly appears unremarkable No evidence of lytic bony destructive lesion. IMPRESSION: 1. On series 2 image #57 there is a small tubular structure which appears fluid-filled measuring 6 mm in transverse dimension which could be the dilated appendix. Underlying appendicitis is a possibility. Correlate clinically and with lab values. Examination limited due to lack of intra-abdominal fat and due to lack of oral contrast. Electronically signed by: Ron Mcrae MD (01/03/2019 4:55 PM) [facility] DICTATED AND SIGNED BY: RON MCRAE MD DATE: 01/03/19 0620 CC: TAJ BEAULIEU DO; PCP,NO ~ Course & Med Decision Making Course & Med Decision Making @6599 - Patient updated on lab and imaging results which suggest acute appendicitis. She is agreeable to transfer to [facility]. @1874 - Case discussed with Dr. Lutz from general surgery. He states to transfer the patient to the hospitalist service and he will consult. @0664 - Dr. Aquino accepts the transfer. Dragon Disclaimer Dragon Disclaimer This electronic medical record was generated, in whole or in part, using a voice recognition dictation system. Departure Departure: Impression: Primary Impression: Acute appendicitis Additional Impressions: Nausea & vomiting Abdominal pain Disposition: 02 XFER T-TRM HOSP ([facility]) Admitting Physician: Other (Dr. Aquino ([facility])) Referrals: PCP,NO (PCP) Problem Qualifiers TAJ BEAULIEU DO Jan 03, 2019 16:03
[2019-01-03 16:35] LABS: BASO % 1 % (0-3); EOS # 0.5 x10^3/uL (0.0-0.7); EOS % 5 % (0-3); HEMATOCRIT 39.5 % (36.0-47.0); HEMOGLOBIN 12.7 g/dL (12.0-15.5); LYMPH # 2.4 x10^3/uL (1.0-4.8); LYMPH % 27 % (24-48); MEAN CORPUSCULAR HEMOGLOBIN 27 pg (25-35); MEAN CORPUSCULAR HGB CONC 32 g/dL (31-37); MEAN CORPUSCULAR VOLUME 83 fL (79-100); MONO # 0.4 x10^3/uL (0.0-1.1); MONO % 5 % (0-9); NEUT # 5.7 x10^3uL (1.8-7.7); NEUT % 63 % (31-73); PLATELET COUNT 202 x10^3/uL (140-400); RED BLOOD COUNT 4.75 x10^6/uL (3.50-5.40); RED CELL DISTRIBUTION WIDTH 13.3 % (11.5-14.5); WHITE BLOOD COUNT 9.1 x10^3/uL (4.0-11.0)
[2019-01-03 16:46] LABS: PREG TEST PT QUAL NEGATIVE (NEG)
[2019-01-03 16:49] LABS: ALBUMIN 4.1 g/dL (3.4-5.0); CALCIUM 9.1 mg/dL (8.5-10.1); CREATININE 0.7 mg/dL (0.6-1.0); GFR 117.3; POTASSIUM 3.3 mmol/L (3.5-5.1); TOTAL BILIRUBIN 0.2 mg/dL (0.2-1.0); TOTAL PROTEIN 8.2 g/dL (6.4-8.2)
--- NOTE | 2019-01-03 16:58 | RAD ---
Examination: CT of the abdomen pelvis with IV contrast HISTORY: History of periumbilical pain, nausea, vomiting COMPARISON: None available TECHNIQUE: Axial CT images of the abdomen pelvis were performed with IV contrast. Coronal and sagittal reformats are performed. Exposure: One or more of the following individualized dose reduction techniques were utilized for this examination: 1. Automated exposure control 2. Adjustment of the mA and/or kV according to patient size 3. Use of iterative reconstruction technique FINDINGS: The bibasilar lungs are clear. No evidence of free air identified in the abdomen. Examination is very limited due to lack of intra-abdominal fat which makes evaluation of the bowel is limited. The visualized liver, spleen, adrenals grossly appears unremarkable. The gallbladder is mildly distended. The stomach is mildly distended. The visualized pancreas grossly appears unremarkable The small bowel is nondilated. On series 2 image #57 there is a small tubular structure which appears fluid-filled measuring 6 mm in transverse dimension which could be the dilated appendix. Underlying appendicitis is a possibility. Multiple bowel loops in this region and lack of oral contrast limits evaluation. Urinary bladder is mildly distended.. Feces and gas noted in the colon throughout The bilateral kidneys enhance symmetrically The caliber of the aorta grossly appears unremarkable No evidence of lytic bony destructive lesion. IMPRESSION: 1. On series 2 image #57 there is a small tubular structure which appears fluid-filled measuring 6 mm in transverse dimension which could be the dilated appendix. Underlying appendicitis is a possibility. Correlate clinically and with lab values. Examination limited due to lack of intra-abdominal fat and due to lack of oral contrast. Electronically signed by: Ron Mcrae MD (01/03/2019 4:55 PM) [facility]
[2019-01-03 18:06] LABS: BACTERIA,URINE 0 /HPF (0-FEW); BILIRUBIN,URINE NEG (NEG); CLARITY,URINE CLEAR; COLOR,URINE STRAW; GLUCOSE,URINE NEG (NEG); NITRITE,URINE NEG (NEG); RBC,URINE 0 /HPF (0-2); SQUAMOUS EPITHELIAL CELL,UR OCC /LPF; UROBILINOGEN,URINE 0.2 mg/dL (0.2 mg/dL); WBC,URINE 0 /HPF (0-4)
== END | disposition short-term general hospital (02) ==
LOC: ER 15:42
DX: K35.80 Unspecified acute appendicitis (principal); R11.2 Nausea with vomiting, unspecified; R19.7 Diarrhea, unspecified
CPT/HCPCS: 36415; 74177; 80053; 81001; 83690; 84703; 85025; 96374; 96375; 99285; J2270; J2405; Q9967; J7030

== ENCOUNTER 2019-01-07 13:36 | Emergency (ER) | payer OTHER ==
[~2019-01-07] VITALS: Ht 157.5 cm; Wt 54.0 kg
[~2019-01-07 13:36] MED LIST changes: -IOHEXOL 240 MG/ML 50ML VIAL. PO ONE; -IOHEXOL 300 MG/ML 75 ML VIAL. IV ONE; -IV NORMAL SALINE 1,000ML 1,000 ML IV SCH; -MORPHINE SULFATE 4 MG/ML DISP.SYRIN. IV/SQ PRN; -ONDANSETRON PF 4 MG/2 ML VIAL. IV ONE
[2019-01-07 14:13] VITALS: BP 101/61
[2019-01-07] MEDS ORDERED: IV NORMAL SALINE 1,000ML 1,000 ML IV ONE (14:15)
[2019-01-07] MEDS ORDERED: IOHEXOL 240 MG/ML 50ML VIAL. ONE (14:20)
[2019-01-07] MEDS ORDERED: IOHEXOL 300 MG/ML 75 ML VIAL. IV ONE (14:30)
[2019-01-07 14:39] LABS: BASO % 0 % (0-3); EOS # 0.2 x10^3/uL (0.0-0.7); EOS % 4 % (0-3); HEMATOCRIT 39.6 % (36.0-47.0); HEMOGLOBIN 12.6 g/dL (12.0-15.5); LYMPH # 1.5 x10^3/uL (1.0-4.8); LYMPH % 36 % (24-48); MEAN CORPUSCULAR HEMOGLOBIN 26 pg (25-35); MEAN CORPUSCULAR HGB CONC 32 g/dL (31-37); MEAN CORPUSCULAR VOLUME 83 fL (79-100); MONO # 0.3 x10^3/uL (0.0-1.1); MONO % 8 % (0-9); NEUT # 2.3 x10^3uL (1.8-7.7); NEUT % 53 % (31-73); PLATELET COUNT 230 x10^3/uL (140-400); RED BLOOD COUNT 4.77 x10^6/uL (3.50-5.40); RED CELL DISTRIBUTION WIDTH 13.5 % (11.5-14.5); WHITE BLOOD COUNT 4.3 x10^3/uL (4.0-11.0)
[2019-01-07 15:24] LABS: ALBUMIN 3.8 g/dL (3.4-5.0); ALBUMIN/GLOBULIN RATIO 0.8 (1.0-1.7); CALCIUM 9.2 mg/dL (8.5-10.1); CREATININE 0.7 mg/dL (0.6-1.0); GFR 117.3; POTASSIUM 3.5 mmol/L (3.5-5.1); TOTAL BILIRUBIN 0.2 mg/dL (0.2-1.0); TOTAL PROTEIN 8.4 g/dL (6.4-8.2)
[2019-01-07 15:26] LABS: BACTERIA,URINE MOD /HPF (0-FEW); BILIRUBIN,URINE NEG (NEG); CLARITY,URINE CLOUDY; COLOR,URINE YELLOW; GLUCOSE,URINE NEG (NEG); NITRITE,URINE NEG (NEG); RBC,URINE OCC /HPF (0-2); SQUAMOUS EPITHELIAL CELL,UR OCC /LPF; UROBILINOGEN,URINE 0.2 mg/dL (0.2 mg/dL)
--- NOTE | 2019-01-07 15:45 | RAD ---
PQRS Compliance statement: One or more of the following individualized dose reduction techniques were utilized for this examination: 1. Automated exposure control. 2. Adjustment of the mA and/or kV according to patient size. 3. Use of iterative reconstruction technique. Indication:Abdominal pain. History of recent appendectomy. TECHNIQUE: CT abdomen and pelvis with IV contrast with multiplanar reformats. COMPARISON: 01/03/2019. FINDINGS: Heart is normal in size. No pericardial or pleural effusion. Clear lung bases. Liver, spleen, gallbladder, pancreas, adrenals within normal limits. No nephrolithiasis or hydronephrosis. No enlarged retroperitoneal or pelvic adenopathy. No free pelvic fluid or ascites. No bowel obstructive. Moderate diffuse colonic stool burden. Uterus is present. Urinary bladder is within normal limits. No nephrolithiasis or loculated fluid collection. No suspicious bony lesion. IMPRESSION: 1. No bowel obstruction. Electronically signed by: Blayne Stallings DO (01/07/2019 3:42 PM) [facility]
--- NOTE | 2019-01-07 15:59 | PHYS DOC ---
Past History Past Medical History: No Pertinent History Past Surgical History: Appendectomy Alcohol Use: None Drug Use: None Adult General Chief Complaint Chief Complaint: POST-OP PROBLEM HPI HPI Patient is a 33 year old female who presents with report of epigastric abdominal pain with concern for possible post-operative problem.. She had a laparoscopic appendectomy on Thursday01/04/19 and was discharged the next day with no concerns. On Thursday01/05/19 in the evening she started having severe epigastric abdominal pain. She denies nausea, vomiting, diarrhea, or constipation. She says nothing makes the pain worse. The pain improved when she took a dose of oxycodone today. She reports also having hemorrhoids that started this week. Denies active bleeding currently. Review of Systems Review of Systems Constitutional: Denies fever or chills Eyes: Denies redness or eye pain HENT: Denies nasal congestion or sore throat Respiratory: Denies cough or shortness of breath Cardiovascular: Denies chest pain or palpitations GI: Reports abdominal pain, Denies nausea, or vomiting : Denies dysuria or hematuria Musculoskeletal: Denies back pain or joint pain Integument: Denies rash or skin lesions Neurologic: Denies headache, focal weakness or sensory changes Complete systems were reviewed and found to be within normal limits, except as documented in this note. Current Medications Current Medications Current Medications Medications (Trade) Dose Ordered Sig/Lillian Start Time Stop Time Status Last Admin Dose Admin Iohexol (Omnipaque 240 Mg/ml) 50 ml STK-MED ONCE 01/07/19 14:20 01/07/19 14:21 DC Iohexol (Omnipaque 300 Mg/ml) 75 ml 1X ONCE 01/07/19 14:30 01/07/19 14:31 DC 01/07/19 15:23 75 ML Sodium Chloride 1,000 ml @ 1,000 mls/hr 1X ONCE 01/07/19 14:15 01/07/19 15:14 DC 01/07/19 14:15 1,000 MLS/HR Allergies Allergies Allergies Coded Allergies Type Severity Reaction Last Updated Verified No Known Drug Allergies 12/08/18 No Physical Exam Physical Exam Constitutional: Well developed, well nourished, no acute distress, non-toxic appearance HENT: Normocephalic, atraumatic, oropharynx moist Eyes: Conjunctiva normal, no discharge Neck: Normal range of motion, no tenderness, supple Cardiovascular: Heart rate normal, regular rhythm Lungs & Thorax: Bilateral breath sounds clear to auscultation, no wheezing Abdomen: Soft, tenderness to palpation in epigastric region and right lower quadrant. No rebound or guarding. Skin: Warm, dry, no erythema, no rash Back: No tenderness, no CVA tenderness Extremities: No tenderness, ROM intact, no edema Neurologic: Alert and oriented X 3, no focal deficits noted Psychologic: Affect normal, judgement normal, mood normal Current Patient Data Vital Signs Vital Signs Date Time Temp Pulse Resp B/P (MAP) Pulse Ox O2 Delivery O2 Flow Rate FiO2 01/07/19 14:13 81 18 101/61 (74) 100 Room Air 01/07/19 13:52 98.2 Lab Results Laboratory Tests Test 01/07/19 14:06 01/07/19 14:50 01/07/19 14:57 01/07/19 15:10 White Blood Count 4.3 x10^3/uL (4.0-11.0) Red Blood Count 4.77 x10^6/uL (3.50-5.40) Hemoglobin 12.6 g/dL (12.0-15.5) Hematocrit 39.6 % (36.0-47.0) Mean Corpuscular Volume 83 fL (79-100) Mean Corpuscular Hemoglobin 26 pg (25-35) Mean Corpuscular Hemoglobin Concent 32 g/dL (31-37) Red Cell Distribution Width 13.5 % (11.5-14.5) Platelet Count 230 x10^3/uL (140-400) Neutrophils (%) (Auto) 53 % (31-73) Lymphocytes (%) (Auto) 36 % (24-48) Monocytes (%) (Auto) 8 % (0-9) Eosinophils (%) (Auto) 4 % (0-3) H Basophils (%) (Auto) 0 % (0-3) Neutrophils # (Auto) 2.3 x10^3uL (1.8-7.7) Lymphocytes # (Auto) 1.5 x10^3/uL (1.0-4.8) Monocytes # (Auto) 0.3 x10^3/uL (0.0-1.1) Eosinophils # (Auto) 0.2 x10^3/uL (0.0-0.7) Basophils # (Auto) 0.0 x10^3/uL (0.0-0.2) Sodium Level 139 mmol/L (136-145) Potassium Level 3.5 mmol/L (3.5-5.1) Chloride Level 103 mmol/L (98-107) Carbon Dioxide Level 26 mmol/L (21-32) Anion Gap 10 (6-14) Blood Urea Nitrogen 8 mg/dL (7-20) Creatinine 0.7 mg/dL (0.6-1.0) Estimated GFR (Cockcroft-Gault) 117.3 BUN/Creatinine Ratio 11 (6-20) Glucose Level 95 mg/dL (70-99) Calcium Level 9.2 mg/dL (8.5-10.1) Magnesium Level 2.0 mg/dL (1.8-2.4) Total Bilirubin 0.2 mg/dL (0.2-1.0) Aspartate Amino Transferase (AST) 18 U/L (15-37) Alanine Aminotransferase (ALT) 15 U/L (14-59) Alkaline Phosphatase 74 U/L (46-116) Total Protein 8.4 g/dL (6.4-8.2) H Albumin 3.8 g/dL (3.4-5.0) Albumin/Globulin Ratio 0.8 (1.0-1.7) L Lipase 112 U/L (73-393) Urine Collection Type Unknown Urine Color Yellow Urine Clarity Cloudy Urine pH 7.0 Urine Specific [place] 1.020 Urine Protein 30 mg/dl (NEG-TRACE) Urine Glucose (UA) Neg mg/dL (NEG) Urine Ketones (Stick) 15 mg/dL (NEG) Urine Blood Neg (NEG) Urine Nitrite Neg (NEG) Urine Bilirubin Neg (NEG) Urine Urobilinogen Dipstick 0.2 mg/dL (0.2 mg/dL) Urine Leukocyte Esterase Trace (NEG) Urine RBC Occ /HPF (0-2) Urine WBC 1-4 /HPF (0-4) Urine Squamous Epithelial Cells Occ /LPF Urine Bacteria Mod /HPF (0-FEW) Urine Mucus Mod /LPF POC Urine HCG, Qualitative hcg negative (Negative) EKG EKG [] Radiology/Procedures Radiology/Procedures PROCEDURE: CT ABD PELV W/ORAL&IV CONTRAST PQRS Compliance statement: One or more of the following individualized dose reduction techniques were utilized for this examination: 1. Automated exposure control. 2. Adjustment of the mA and/or kV according to patient size. 3. Use of iterative reconstruction technique. Indication:Abdominal pain. History of recent appendectomy. TECHNIQUE: CT abdomen and pelvis with IV contrast with multiplanar reformats. COMPARISON: 01/03/2019. FINDINGS: Heart is normal in size. No pericardial or pleural effusion. Clear lung bases. Liver, spleen, gallbladder, pancreas, adrenals within normal limits. No nephrolithiasis or hydronephrosis. No enlarged retroperitoneal or pelvic adenopathy. No free pelvic fluid or ascites. No bowel obstructive. Moderate diffuse colonic stool burden. Uterus is present. Urinary bladder is within normal limits. No nephrolithiasis or loculated fluid collection. No suspicious bony lesion. IMPRESSION: 1. No bowel obstruction. Electronically signed by: Blayne Stallings DO (01/07/2019 3:42 PM) [facility][] Course & Med Decision Making Course & Med Decision Making Pertinent Labs and Imaging studies reviewed. (See chart for details) Ms. Palmer is a 33 year old female who presents with abdominal pain with concern for possible post-op issue. She had her appendix removed laparoscopically on 01/04. After she was discharged on 01/05 and subsequently started having severe epigastric abdominal pain. She denies nausea, vomiting, diarrhea. She reports hemorrhoids. On physical exam her abdomen is soft with tenderness to palpation in epigastric and right lower quadrant. Abdomen is mildly distended. Laboratory evaluation shows no significant abnormalities. CT abdomen shows no bowel obstruction, but shows moderate diffuse colonic stool burden. She is constipated and is treated with laxatives and stool softener. For her hemorrhoids she is given Anusol-HC supp. Patient stable for discharge with outpatient follow-up with PCP. Discussed findings and plan with patient and family, who acknowledge understanding and agreement. Dragon Disclaimer Dragon Disclaimer This electronic medical record was generated, in whole or in part, using a voice recognition dictation system. Departure Departure: Impression: Primary Impression: Constipation Additional Impression: Hemorrhoid Disposition: HOME, SELF-CARE Condition: STABLE Referrals: PCP,NO (PCP) Patient Instructions: Constipation, Adult, [id number], Hemorrhoids, Easy -to-Read, Laparoscopic Appendectomy, Care After, Xjer-lt-[id number] Scripts Hydrocortisone Acetate (ANUSOL-HC) 25 Mg Supp.rect 1 SUPP RC BID for hemmorhoid, #14 SUPP Prov: BAL DUNHAM DO 01/07/19 Magnesium Citrate (MAGNESIUM CITRATE) 296 Ml Solution 296 ML PO ONCE for constipation, #296 ML Prov: BAL DUNHAM DO 01/07/19 Sennosides/Docusate Sodium (Colace 2-in-1 Tablet) 1 Each Tablet 1 EACH PO QHS for constipation, #14 TAB Prov: BAL DUNHAM DO 01/07/19 Problem Qualifiers Primary Impression: Constipation Constipation type: unspecified constipation type Qualified Codes: K59.00 - Constipation, unspecified Additional Impression: Hemorrhoid Hemorrhoid type: unspecified Qualified Codes: K64.9 - Unspecified hemorrhoids BAL DUNHAM DO Jan 07, 2019 15:59
[2019-01-07] MEDS ORDERED: SENN-121 PO (16:09)
[2019-01-07] MEDS ORDERED: MAGN296S9 PO (16:09)
[2019-01-07] MEDS ORDERED: HYDR25SU18 RC (16:19)
== END 2019-01-07 16:00 | disposition home or self-care (01) ==
LOC: ER 13:36
DX: K59.00 Constipation, unspecified (principal); K64.9 Unspecified hemorrhoids; G89.18 Other acute postprocedural pain; Z90.89 Acquired absence of other organs
CPT/HCPCS: 36415; 74177; 80053; 81001; 81025; 83690; 83735; 85025; 87086; 99285; Q9967; J7030

== ENCOUNTER 2019-11-14 03:36 | Emergency (ER) | payer OTHER ==
[~2019-11-14] VITALS: Ht 157.5 cm; Wt 56.8 kg
[~2019-11-14 03:36] MED LIST changes: +HYDR25SU18 RC; +MAGN296S68 PO; +SENN-121 PO
--- NOTE | 2019-11-14 04:00 | PHYS DOC ---
Past History Past Medical History: No Pertinent History, GERD Past Medical History BV, Herpetic Past Surgical History: Appendectomy Alcohol Use: None Drug Use: None General Adult EDM: Chief Complaint: ABDOMINAL PAIN IN HPI: HPI: "..I got bad burning... in my stomach.. reflux..I did eat some ... food before I went to bed.... Casaba root.. mixed with vegetables and some aftercare fish that we buy at the [employer] store on [address].... I have had this acid stomach before...".I am About 13 weeks ...." .." I see the at [facility].. and I go to [place] for everything else..." .." I saw them on Thursday.. they took some blood...did a US ... 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 Patient is originally from [place] and did have a late meal of imported fish, casaba, vegetables before going to bed. No one else that had the same meal in the household got ill. Patient has had history of prior reflux and acid stomach. Patient is 2 term 1. Is taking vitamins. No recent history of travel outside the [place] area. Patient immigrated from [facility] and enlisted to the [employer] in 2014. 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 No one in the home is ill. Patient follows at [facility] and [place] for care. Patient denies any history of trauma. Patient has had appendectomy. No family history of gallbladder disease patient denies any history of gallbladder disease. Patient did have a normal stool yesterday. No tarry stools or bloody stools. Patient is up-to-date with vaccinations. Reportedly ultrasound completed Thursday at her [employer] indicated intrauterine with no acute findings. Patient denies any vaginal bleeding or discharge. Pt. blood type is A + by her ID. Review of Systems: Review of Systems: Constitutional: Denies fever or chills Eyes: Denies change in visual acuity HENT: Denies nasal congestion or sore throat Respiratory: Denies cough or shortness of breath Cardiovascular: Denies chest pain or edema GI: Denies abdominal pain, nausea, vomiting, bloody stools or diarrhea : Denies dysuria Musculoskeletal: Denies back pain or joint pain Integument: Denies rash Neurologic: Denies headache, focal weakness or sensory changes Endocrine: Denies polyuria or polydipsia Lymphatic: Denies swollen glands Psychiatric: Denies depression or anxiety Heart Score: HEART Score for Chest Pain: HEART Score for Chest Pain Response (Comments) Value ECG Normal 0 Age < 45 0 Risk Factors No Risk Factors 0 Troponin < Normal Limit 0 Total 0 Risk Factors: Risk Factors: DM, Current or recent (<one month) smoker, HTN, HLP, family history of CAD, obesity. Risk Scores: Score 0 - 3: 2.5% MACE over next 6 weeks - Discharge Home Score 4 - 6: 20.3% MACE over next 6 weeks - Admit for Clinical Observation Score 7 - 10: 72.7% MACE over next 6 weeks - Early Invasive Strategies Family History: Family History: Noncontributory to presentation Current Medications: Current Meds: See nursing for home meds Allergies: Allergies: Allergies Coded Allergies Type Severity Reaction Last Updated Verified No Known Drug Allergies 12/08/18 No Physical Exam: PE: Constitutional: Well developed, well nourished, mild distress, non-toxic appearance. [] HENT: Normocephalic, atraumatic, bilateral external ears normal, oropharynx moist, no oral exudates, nose normal. [] Eyes: PERRLA, EOMI, conjunctiva normal, no discharge. [] Neck: Normal range of motion, no tenderness, supple, no stridor. [] Cardiovascular:Heart rate regular rhythm, no murmur [] Lungs & Thorax: Bilateral breath sounds clear to auscultation [] Abdomen: Bowel sounds normal, soft, mild epigastric tenderness, no masses, no pulsatile masses. [] Patient declines vaginal or rectal exam at this time. No true rebound sign. Appendectomy laparoscopic scars. Appears to be gravid, uterus to the level just below the umbilicus Skin: Warm, dry, no erythema, no rash. [] Back: No tenderness, no CVA tenderness. [] Extremities: No tenderness, no cyanosis, no clubbing, ROM intact, no edema. [No psoas sign. Neurologic: Alert and oriented X 3, normal motor function, normal sensory function, no focal deficits noted. [] Psychologic: Affect anxious, judgement normal, mood normal. [] EKG: EKG: [] Radiology/Procedures: Radiology/Procedures: [] Course & Med Decision Making: Course & Med Decision Making Pertinent Labs and Imaging studies reviewed. (See chart for details) Patient was asymptomatic at time of discharge. Patient stay on a clear fluid diet for 24 to 48 hours. No solids or milk products. Patient take Tums or calcium tablets as needed for acid stomach. May take Tylenol for pain. Avoid eating before going to bed. Follow-up primary care. Return if any concerns. Reviewed urine ED work-up with her OB and primary care. Impression: 1. Abdomen pain 2. Suspect GERD or acid reflux 3. History gravid 2 para 1 (Currently - 13 weeks) 4. Hemoglobin 11.8. 5. History bacterial vaginosis 6. [facility] [phone] [] Fanny Disclaimer: Fanny Disclaimer: This electronic medical record was generated, in whole or in part, using a voice recognition dictation system. Departure Departure: Disposition: 01 HOME/RESIDENCE PRIOR TO ADM Condition: STABLE Referrals: PCP,NO (PCP) Fanny Disclaimer This chart was dictated in whole or in part using Voice Recognition software in a busy, high-work load, and often noisy Emergency Department environment. It may contain unintended and wholly unrecognized errors or omissions. ANKIT HUDSON MD November 14, 2019 04:00
[2019-11-14] MEDS ORDERED: IV RINGERS SOLUTION,LACTATED 1,000 ML IV SCH (04:01)
[2019-11-14] MEDS ORDERED: ONDANSETRON PF 4 MG/2 ML VIAL. IVP ONE (04:15)
[2019-11-14] MEDS ORDERED: MAGNESIUM HYDROXIDE 2,400 MG/30 ML ORAL.SUSP. PO ONE (04:30)
[2019-11-14] MEDS ORDERED: SUCRALFATE 1 GM TABLET. PO ONE (04:30)
[2019-11-14] MEDS ORDERED: ACETAMINOPHEN 500 MG TABLET PO ONE (04:30)
[2019-11-14] MEDS ORDERED: FAMOTIDINE 20 MG TABLET PO ONE (04:30)
[2019-11-14 04:48] LABS: BASO % 0 % (0-3); EOS # 0.1 x10^3/uL (0.0-0.7); EOS % 3 % (0-3); HEMOGLOBIN 11.8 g/dL (12.0-15.5); LYMPH # 1.2 x10^3/uL (1.0-4.8); LYMPH % 29 % (24-48); MEAN CORPUSCULAR HEMOGLOBIN 27 pg (25-35); MEAN CORPUSCULAR HGB CONC 33 g/dL (31-37); MEAN CORPUSCULAR VOLUME 83 fL (79-100); MONO # 0.3 x10^3/uL (0.0-1.1); MONO % 7 % (0-9); NEUT # 2.5 x10^3uL (1.8-7.7); NEUT % 60 % (31-73); PLATELET COUNT 191 x10^3/uL (140-400); RED BLOOD COUNT 4.32 x10^6/uL (3.50-5.40); RED CELL DISTRIBUTION WIDTH 13.5 % (11.5-14.5); WHITE BLOOD COUNT 4.1 x10^3/uL (4.0-11.0)
[2019-11-14 04:56] LABS: CALCIUM 8.9 mg/dL (8.5-10.1); CREATININE 0.4 mg/dL (0.6-1.0); GFR 222.4
[2019-11-14 04:57] LABS: CLARITY,URINE HAZY; COLOR,URINE YELLOW
[2019-11-14 04:58] LABS: AMORPHOUS SEDIMENT,UR PRESENT /HPF; BACTERIA,URINE 0 /HPF (0-FEW); BILIRUBIN,URINE NEG (NEG); GLUCOSE,URINE NEG (NEG); NITRITE,URINE NEG (NEG); RBC,URINE 0 /HPF (0-2); SQUAMOUS EPITHELIAL CELL,UR OCC /LPF; UROBILINOGEN,URINE 0.2 mg/dL (0.2 mg/dL); WBC,URINE RARE /HPF (0-4)
[2019-11-14 05:02] LABS: ALBUMIN 3.3 g/dL (3.4-5.0); DIRECT BILIRUBIN 0.1 mg/dL (0.0-0.2); TOTAL BILIRUBIN 0.2 mg/dL (0.2-1.0); TOTAL PROTEIN 7.1 g/dL (6.4-8.2)
[2019-11-14 05:20] VITALS: BP 124/76
== END 2019-11-14 05:25 | disposition home or self-care (01) ==
LOC: ER 03:36
DX: O26.891 Other specified pregnancy related conditions, first trimester (principal); R10.13 Epigastric pain; Z3A.13 13 weeks gestation of pregnancy
CPT/HCPCS: 36415; 80048; 80076; 81001; 81025; 83690; 84484; 84702; 85025; 85610; 85730; 96374; 99284; J2405; J7120; 96361

== ENCOUNTER 2020-02-29 19:51 | Emergency (ER) | payer OTHER ==
[~2020-02-29] VITALS: Ht 157.5 cm; Wt 61.9 kg
[2020-02-29 19:51] VITALS: BP 101/53
--- NOTE | 2020-02-29 20:03 | PHYS DOC ---
Past History Past Medical History: No Pertinent History, GERD Past Surgical History: Appendectomy Alcohol Use: None Drug Use: None General Adult EDM: Chief Complaint: ABDOMINAL PAIN IN HPI: HPI: ".. I ate dinner... chicken.. and got really bad pain.. here ( points to epigastric and Rt/ upper quadrant)... then I started hurting.low... I am 28 weeks.. this is my second ..." Patient is a 34 year old female who presents with above hx and complaints onset of severe epigastric and right upper quadrant pain after eating chicken for dinner. Patient then developed lower abdomen pain. Patient denies any intake of bad food. No history of trauma. No history of recent [facility]. Patient normally follows at [facility] for care. Patient is [facility] at [facility] her . Patient states she is approximately 28 weeks gravid this is her second . First vaginal delivery without problems. No history of fever chills. No specific ill contacts. Patient currently very nauseated and did vomit on arrival to the emergency department. Currently localizes pain to right upper quadrant and some lower pelvic cramping. No history of vaginal bleeding. Patient has a past history of frequent episodes of GERD and generalized abdomen pain including IBS and constipation. Review of Systems: Review of Systems: Constitutional: Denies fever or chills Eyes: Denies change in visual acuity HENT: Denies nasal congestion or sore throat Respiratory: Denies cough or shortness of breath Cardiovascular: Denies chest pain or edema GI: Complaints of Rt upper abdominal pain, nausea, vomiting,. Pt. denies bloody stools or diarrhea : Denies dysuria Musculoskeletal: Denies back pain or joint pain Integument: Denies rash Neurologic: Denies headache, focal weakness or sensory changes Endocrine: Denies polyuria or polydipsia Lymphatic: Denies swollen glands Psychiatric: Denies depression or anxiety Heart Score: Risk Factors: Risk Factors: DM, Current or recent (<one month) smoker, HTN, HLP, family history of CAD, obesity. Risk Scores: Score 0 - 3: 2.5% MACE over next 6 weeks - Discharge Home Score 4 - 6: 20.3% MACE over next 6 weeks - Admit for Clinical Observation Score 7 - 10: 72.7% MACE over next 6 weeks - Early Invasive Strategies Family History: Family History: Noncontributory to presentation Current Medications: Current Meds: See nursing for home meds Allergies: Allergies: Allergies Coded Allergies Type Severity Reaction Last Updated Verified No Known Drug Allergies 12/08/18 No Physical Exam: PE: Constitutional: in moderatedly acute distress, non-toxic appearance. [] HENT: Normocephalic, atraumatic, bilateral external ears normal, oropharynx moist, no oral exudates, nose normal. [] Eyes: PERRLA, EOMI, conjunctiva normal, no discharge. [] Neck: Normal range of motion, no tenderness, supple, no stridor. [] Cardiovascular:Heart rate regular rhythm, no murmur [] Lungs & Thorax: Bilateral breath sounds clear to auscultation [] Abdomen: Bowel sounds normal, soft, right upper quadrant and epigastric tenderness, no masses, no pulsatile masses. [] Gravid. heart rate approximately 150 to160. Patient declines pelvic exam at this time. Skin: Warm, dry, no erythema, no rash. [] Back: No tenderness, no CVA tenderness. [] Extremities: No tenderness, no cyanosis, no clubbing, ROM intact, trace ankle edema. [] Neurologic: Alert and oriented X 3, normal motor function, normal sensory function, no focal deficits noted. [] DTRs +2 patellar brachial. Psychologic: Affect anxious, judgement normal, mood normal. [] EKG: EKG: [] Radiology/Procedures: Radiology/Procedures: [[address] [address] IMAGING REPORT Signed PATIENT: MAURICE GRIMES TACCOUNT: [id number] : 1985 LOCATION: ER AGE: 34 SEX: F EXAM STATUS: REG ER ORD. PHYSICIAN: ANKIT HUDSON MD REASON: rt. upper abd pain, nausea and vomiting 28 weeks gravid PROCEDURE: ABDOMEN LTD Examination: ABDOMEN LTD History: Reason: rt. upper abd pain, nausea and vomiting 28 weeks gravid Comparison/Correlation: 01/07/2019 CT abdomen and pelvis with contrast Findings: Hepatic echotexture is normal. Cholelithiasis evident. Sonographic Yuan sign. No biliary dilatation. Common bile duct is normal limits. No pericholecystic fluid. Possible pancreas is unremarkable. Distal pancreas is obscured by bowel gas. Right kidney measures up to 11.3 cm longitudinal. No right hydronephrosis. Abdominal aorta is unremarkable. Inferior vena cava is unremarkable. Portal vein is not optimally delineated. No right upper quadrant ascites. Impression: Cholelithiasis. Sonographic Yuan sign. No biliary dilatation, gallbladder wall thickening, or pericholecystic fluid to strongly suggest acute cholecystitis. Correlate clinically and determine further evaluation. Electronically signed by: Zack Lake MD (02/29/2020 10:49 PM) [id number] DICTATED AND SIGNED BY: ZACK LAKE MD DATE: 02/29/20 1491 CC: ANKIT HUDSON MD; PCP,UNKNOWN ~ ][place] [address] IMAGING REPORT Signed PATIENT: MAURICE GRIMES TACCOUNT: [id number] : 1985 LOCATION: ER AGE: 34 SEX: F EXAM STATUS: REG ER ORD. PHYSICIAN: ANKIT HUDSON MD REASON: ABD pain- est 28 weeks PROCEDURE: OB LIMITED Exam: Ultrasound OB limited Indication: Abdominal pain Technique: Real-time grayscale and color Doppler images of the pelvis were obtained by the department five piece expansion maker hand. Comparisons: None FINDINGS: Within the uterus there is a single live intrauterine gestation with heart rate measured at 145 bpm. Fetus is in cephalic position measurements as follows: BPD: 7.3 cm corresponding to 29 weeks 2 days Head circumference: 26.5 cm corresponding to 28 weeks 6 days Abdominal circumference: 24.2 cm corresponding to 20 weeks 3 days Femur length: 5.3 cm corresponding to 28 weeks 1 day DELVIN: 16.4 Placenta is posterior and has a normal appearance. IMPRESSION: 1. Single live intrauterine gestation measuring 28 weeks 5 days. 2. Normal DELVIN. 3. Normal appearance of the placenta. Electronically signed by: Alisa Castro MD (02/29/2020 11:03 PM) [id number] DICTATED AND SIGNED BY: ALISA CASTRO MD DATE: 02/29/20 0527 CC: ANKIT HUDSON MD; PCP,UNKNOWN ~ Course & Med Decision Making: Course & Med Decision Making Pertinent Labs and Imaging studies reviewed. (See chart for details) Pt. requesting discharge. Declined pelvic exam at this time. Review findings of US and needed for follow up. Must present to hospital she plans on delivery for further problems and symptoms. Will start on Keflex and Zofran. . Must follow-up with primary care. Call STOCK CLERK in the morning. Prompt follow-up. Patient push fruit juices. Clear fluid diet for the next 24 hours. Impression: 1. Abdomen pain 2. Gall stones 3. IUP 28 weeks 5 days 4. Blood Type A + positive 5. Hgb. 11.4, WBC 6.8 6. Hypokalemia 3.1 [] Dragon Disclaimer: Dragon Disclaimer: This electronic medical record was generated, in whole or in part, using a voice recognition dictation system. Departure Departure: Disposition: HOME/RESIDENCE PRIOR TO ADM Condition: STABLE Referrals: PCP,UNKNOWN (PCP) Scripts Ondansetron Hcl (ZOFRAN) 8 Mg Tablet 8 MG PO QIDPRN PRN for NAUSEA/VOMITING, #30 BOX Prov: ANKIT HUDSON MD 03/01/20 Cephalexin (KEFLEX) 500 Mg Capsule 500 MG PO TID for cholecystitis for 7 Days, BOTTLE Prov: ANKIT HUDSON MD 03/01/20 Justification of Admission: Justification of Admission: Justification of Admission Dx: N/A Dragon Disclaimer This chart was dictated in whole or in part using Voice Recognition software in a busy, high-work load, and often noisy Emergency Department environment. It may contain unintended and wholly unrecognized errors or omissions. Dragon Disclaimer This chart was dictated in whole or in part using Voice Recognition software in a busy, high-work load, and often noisy Emergency Department environment. It may contain unintended and wholly unrecognized errors or omissions. ANKIT HUDSON MD Feb 29, 2020 20:03
[2020-02-29] MEDS ORDERED: ONDANSETRON PF 4 MG/2 ML VIAL. ONE (20:12)
[2020-02-29] MEDS: ONDANSETRON PF 4 MG/2 ML VIAL. IVP ONE ×3 (20:24→23:24)
[2020-02-29] MEDS: IV RINGERS SOLUTION,LACTATED 1,000 ML IV SCH (20:25)
[2020-02-29 20:31] LABS: BASO % 0 % (0-3); EOS # 0.2 x10^3/uL (0.0-0.7); EOS % 3 % (0-3); HEMATOCRIT 34.9 % (36.0-47.0); HEMOGLOBIN 11.4 g/dL (12.0-15.5); LYMPH # 1.9 x10^3/uL (1.0-4.8); LYMPH % 28 % (24-48); MEAN CORPUSCULAR HEMOGLOBIN 28 pg (25-35); MEAN CORPUSCULAR HGB CONC 33 g/dL (31-37); MEAN CORPUSCULAR VOLUME 86 fL (79-100); MONO # 0.5 x10^3/uL (0.0-1.1); MONO % 7 % (0-9); NEUT % 61 % (31-73); PLATELET COUNT 154 x10^3/uL (140-400); RED BLOOD COUNT 4.08 x10^6/uL (3.50-5.40); RED CELL DISTRIBUTION WIDTH 14.6 % (11.5-14.5); WHITE BLOOD COUNT 6.6 x10^3/uL (4.0-11.0)
[2020-02-29 20:58] LABS: CALCIUM 8.6 mg/dL (8.5-10.1); CREATININE 0.6 mg/dL (0.6-1.0); GFR 139.3; POTASSIUM 3.1 mmol/L (3.5-5.1)
[2020-02-29 21:01] LABS: BARBITURATES NEG (NEG); BENZODIAZEPINES NEG (NEG); CANNABINOIDS NEG (NEG); COCAINE NEG (NEG); METHADONE NEG (NEG); OPIATES NEG (NEG); PHENCYCLIDINE NEG (NEG)
[2020-02-29 21:06] LABS: ALBUMIN 2.9 g/dL (3.4-5.0); DIRECT BILIRUBIN 0.1 mg/dL (0.0-0.2); TOTAL BILIRUBIN 0.1 mg/dL (0.2-1.0); TOTAL PROTEIN 7.1 g/dL (6.4-8.2)
[2020-02-29 21:23] LABS: AMPHETAMINE/METHAMPHETAMINE NEG (NEG)
[2020-02-29 21:31] LABS: BILIRUBIN,URINE NEG (NEG); CLARITY,URINE TURBID; COLOR,URINE STRAW; GLUCOSE,URINE 250 mg/dL (NEG)
[2020-02-29 21:32] LABS: AMORPHOUS SEDIMENT,UR PRESENT /HPF; BACTERIA,URINE MOD /HPF (0-FEW); NITRITE,URINE NEG (NEG); RBC,URINE 0 /HPF (0-2); UROBILINOGEN,URINE 0.2 mg/dL (0.2 mg/dL)
[2020-02-29] MEDS: MORPHINE SULFATE 10 MG/ML SYRINGE. SQ ONE (21:41)
--- NOTE | 2020-02-29 22:52 | RAD ---
Examination: ABDOMEN LTD History: Reason: rt. upper abd pain, nausea and vomiting 28 weeks gravid Comparison/Correlation: 01/07/2019 CT abdomen and pelvis with contrast Findings: Hepatic echotexture is normal. Cholelithiasis evident. Sonographic Yuan sign. No biliary dilatation. Common bile duct is normal limits. No pericholecystic fluid. Possible pancreas is unremarkable. Distal pancreas is obscured by bowel gas. Right kidney measures up to 11.3 cm longitudinal. No right hydronephrosis. Abdominal aorta is unremarkable. Inferior vena cava is unremarkable. Portal vein is not optimally delineated. No right upper quadrant ascites. Impression: Cholelithiasis. Sonographic Yuan sign. No biliary dilatation, gallbladder wall thickening, or pericholecystic fluid to strongly suggest acute cholecystitis. Correlate clinically and determine further evaluation. Electronically signed by: Zack Myrick MD (02/29/2020 10:49 PM) [id number]
--- NOTE | 2020-02-29 23:06 | RAD ---
Exam: Ultrasound OB limited Indication: Abdominal pain Technique: Real-time grayscale and color Doppler images of the pelvis were obtained by the department collateral specialist. Comparisons: None FINDINGS: Within the uterus there is a single live intrauterine gestation with heart rate measured at 145 bpm. Fetus is in cephalic position measurements as follows: BPD: 7.3 cm corresponding to 29 weeks 2 days Head circumference: 26.5 cm corresponding to 28 weeks 6 days Abdominal circumference: 24.2 cm corresponding to 20 weeks 3 days Femur length: 5.3 cm corresponding to 28 weeks 1 day DELVIN: 16.4 Placenta is posterior and has a normal appearance. IMPRESSION: 1. Single live intrauterine gestation measuring 28 weeks 5 days. 2. Normal DELVIN. 3. Normal appearance of the placenta. Electronically signed by: Alisa Hansen MD (02/29/2020 11:03 PM) [id number]
[2020-02-29] MEDS: MAGNESIUM HYDROXIDE 2,400 MG/30 ML ORAL.SUSP. PO ONE (23:24)
[2020-02-29] MEDS ORDERED: cefTRIAXone SODIUM 1 GM VIAL ONE (23:29)
[2020-02-29] MEDS ORDERED: IV NORMAL SALINE 50ML 50 ML ONE (23:29)
[2020-03-01] MEDS ORDERED: CEPH-264 PO (00:06)
[2020-03-01] MEDS ORDERED: ONDA8TAB9 PO (00:07)
== END 2020-03-01 00:52 | disposition home or self-care (01) ==
LOC: ER 19:51
DX: O99.613 Diseases of the digestive system complicating pregnancy, third trimester (principal); K80.20 Calculus of gallbladder without cholecystitis without obstruction; O99.283 Endocrine, nutritional and metabolic diseases complicating pregnancy, third trimester; O21.9 Vomiting of pregnancy, unspecified; E87.6 Hypokalemia; K21.9 Gastro-esophageal reflux disease without esophagitis; Z90.89 Acquired absence of other organs; Z3A.28 28 weeks gestation of pregnancy
CPT/HCPCS: 36415; 76705; 76815; 80048; 80076; 80307; 81001; 82550; 83690; 84443; 84702; 85025; 85610; 85730; 86900; 86901; 87086; 96361; 96365; 96372; 96375; 96376; 99285; J0696; J2270; J2405; J7120